=== PATIENT | female | born 1970 | race Caucasian/White ===

== ENCOUNTER 2021-12-23 19:01 | Observation (INO) | payer BC ==
[~2021-12-23] VITALS: Ht 170.2 cm; Wt 90.7 kg
[2021-12-23 19:47] LABS: HEMOGLOBIN 12.2 gm/dl (12.3-15.3); RED BLOOD COUNT 4.28 M/UL (4.00-5.10); WHITE BLOOD COUNT 6.8 K/UL (4.5-11.0)
[2021-12-23 20:24] LABS: BUN/CREATININE RATIO 25 (0-10)
[2021-12-24 04:33] LABS: HEMOGLOBIN 11.5 gm/dl (12.3-15.3); RED BLOOD COUNT 4.03 M/UL (4.00-5.10); WHITE BLOOD COUNT 6.3 K/UL (4.5-11.0)
[2021-12-24 04:54] LABS: BUN/CREATININE RATIO 24 (0-10)
[2021-12-24] MEDS ORDERED: ALPRAZOLAM0.5 MG PO (09:24)
[2021-12-24] MEDS ORDERED: ESCITALOPRAM OX20 MG PO (09:24)
[2021-12-24] MEDS ORDERED: MELOXICAM15 MG PO (09:25)
[2021-12-24] MEDS ORDERED: FAMOTIDINE20 MG PO (09:25)
--- NOTE | 2021-12-24 15:29 | NUR ---
Report called to [facility] on [facility]
[2021-12-25 02:03] LABS: HEMOGLOBIN 12.2 gm/dl (12.3-15.3); RED BLOOD COUNT 4.27 M/UL (4.00-5.10); WHITE BLOOD COUNT 6.6 K/UL (4.5-11.0)
[2021-12-25 02:16] LABS: BUN/CREATININE RATIO 20 (0-10)
== END 2021-12-25 09:39 | disposition home or self-care (01) ==
LOC: ER1 19:01 → PROG CARE 21:46 → CDU 21:46 → PROG CARE 12-24 01:02 → M/S 12-24 16:32 → PROG CARE 12-24 17:04
PROVIDERS: Internal Medicine; Physician Assistant; ADMIT Internal Medicine
DX: R51.9 Headache, unspecified (principal); F41.8 Other specified anxiety disorders; R47.01 Aphasia; R42 Dizziness and giddiness; Z82.3 Family history of stroke
CPT/HCPCS: ECHO; 0240U; 36415; 70450; 70551; 80048; 80053; 80061; 82550; 82553; 82607; 82962; 83036; 83735; 84100; 84439; 84443; 84484; 85025; 85027; 93005; 93306; 93880; 97161; 97165; 99285; G0378; Q0177